=== PATIENT | male | born 1965 | race Two or more races ===

== ENCOUNTER 2023-12-23 20:00 | Inpatient (IN) | payer OTHER ==
[~2023-12-23] VITALS: Ht 180.3 cm; Wt 70.3 kg
[2023-12-23] MEDS ORDERED: SYNTHROID150 MCG PO (20:33)
[2023-12-23] MEDS ORDERED: METFORMIN HCL1000 MG (20:33)
[2023-12-23] MEDS ORDERED: COZAAR25 MG PO (20:33)
[2023-12-23] MEDS ORDERED: COZAAR100 MG (20:34)
[2023-12-23] MEDS ORDERED: CARAFATE1 GM (20:34)
[2023-12-23] MEDS ORDERED: CLONAZEPAM2 MG (20:34)
[2023-12-23] MEDS ORDERED: METOPROLOL SUCC25 MG PO (20:35)
[2023-12-23] MEDS ORDERED: TRAZODONE HCL100 MG PO (20:35)
[2023-12-23] MEDS ORDERED: TAMS0.4C (20:35)
[2023-12-23] MEDS ORDERED: PROSCAR5 MG (20:35)
[2023-12-23] MEDS ORDERED: OZEMPIC0.25 MG/02 (20:36)
[2023-12-23] MEDS ORDERED: ABANEU-SL TABL1 EACH (20:36)
[2023-12-23] MEDS ORDERED: TAMSULOSIN HCL 0.4 MG CAP PO ONE ×2 (21:00→21:08)
[2023-12-23] MEDS ORDERED: KETOROLAC TROMETHAMINE 60 MG VIAL IM ONE ×2 (21:00→21:09)
[2023-12-23] MEDS ORDERED: CEFTRIAXONE SODIUM 2,000 MG VIAL IV ONE (21:00)
[2023-12-23] MEDS ORDERED: 0.9 % SODIUM CHLORIDE 1,000 ML IV ONE (21:00)
[2023-12-23] MEDS ORDERED: CEFTRIAXONE SODIUM 2,000 MG VIAL ONE (21:09)
[2023-12-23 21:28] LABS: HEMATOCRIT 39.1 % (39.0-48.0); HEMOGLOBIN 13.2 g/dL (13-16.00); MEAN CELL VOLUME 91.5 fL (80.0-100.00); MEAN CORPUSCULAR HEMOGLOBIN 30.8 pg (27.00-32.0); MEAN CORPUSCULAR HGB CONC 33.7 g/dl (32.0-36.0); PLATELET COUNT 322 K/uL (150-450); RED BLOOD COUNT 4.27 M/uL (4.00-6.00); RED CELL DISTRIBUTION WIDTH 13.4 % (11.5-14.5)
[2023-12-23 21:32] LABS: PH,URINE 5.5 (5.0-8.0); URINE APPEARANCE Cloudy; URINE BILIRRUBIN Small (NEGATIVE); URINE BLOOD Large; URINE COLOR Orange; URINE GLUCOSE Negative (NEGATIVE); URINE KETONE Negative (NEGATIVE); URINE LEUKOCYTE Moderate; URINE NITRATE Positive
[2023-12-23 21:35] LABS: URINE BACTERIA 147.4 uL (0.0-1933); URINE EPITHELIAL CELLS 16.6 uL (0.0-38.8); URINE RBC 9074.5 uL (0.0-20.8); URINE WBC 287.4 uL (0.0-23.2)
[2023-12-23 22:00] LABS: ALBUMIN 3.4 gm/dL (3.4-5.0); BILIRUBIN TOTAL 0.31 mg/dL (0.3-1.2); CALCIUM 9.5 mg/dL (8.5-10.1); CREATININE SERUM 1.33 mg/dL (0.70-1.30); GFR 54.85; GLOBULINA 4.3 G/DL (2.4-3.5); POTASSIUM 4.79 mEq/L (3.5-5.1); TOTAL PROTEIN 7.7 gm/dL (6.4-8.2)
[2023-12-23 22:05] LABS: URINE PROTEIN 100 (NEGATIVE)
[2023-12-23 22:06] LABS: URINE MUCUS MODERATE
[2023-12-24] MEDS ORDERED: 0.9 % SODIUM CHLORIDE 1,000 ML IV SCH (00:30)
[2023-12-24] MEDS ORDERED: ACETAMINOPHEN 500 MG GEL..CAP PO PRN (00:30)
[2023-12-24 02:04] LABS: INR 0.98; PARTIAL THROMBOPLASTIN TIME 32.1 SECONDS (22.0-34.0); PROTHROMBIN TIME 10.7 SECONDS (9.0-11.5)
[2023-12-24] MEDS ORDERED: LEVOTHYROXINE SODIUM 150 MCG TABLET PO SCH (06:00)
[2023-12-24 07:24] VITALS: BP 100/67; O2SAT 95
[2023-12-24] MEDS ORDERED: FINASTERIDE 5 MG TABLET PO SCH (09:00)
[2023-12-24] MEDS ORDERED: FAMOTIDINE/PF 20 MG in 0.9 % SODIUM CHLORIDE 8 ML IV PUSH SCH (09:00)
[2023-12-24] MEDS ORDERED: METOPROLOL SUCCINATE 25 MG TAB.SR.24H PO SCH (09:00)
[2023-12-24] MEDS ORDERED: LOSARTAN POTASSIUM 100 MG TABLET PO SCH (09:00)
[2023-12-24] MEDS ORDERED: TAMSULOSIN HCL 0.4 MG CAP PO SCH (09:00)
[2023-12-24] MEDS ORDERED: CEFTRIAXONE SODIUM 2,000 MG in 0.9 % SODIUM CHLORIDE 100 ML IV SCH (09:00)
[2023-12-24 18:41] VITALS: BP 116/80
[2023-12-24] MEDS ORDERED: TRAZODONE HCL 50 MG TABLET PO SCH (21:00)
[2023-12-25 02:00] VITALS: BP 116/83
[2023-12-25 08:55] LABS: HEMATOCRIT 39.6 % (39.0-48.0); HEMOGLOBIN 13.6 g/dL (13-16.00); MEAN CELL VOLUME 89.9 fL (80.0-100.00); MEAN CORPUSCULAR HEMOGLOBIN 30.7 pg (27.00-32.0); MEAN CORPUSCULAR HGB CONC 34.2 g/dl (32.0-36.0); PLATELET COUNT 303 K/uL (150-450); RED BLOOD COUNT 4.41 M/uL (4.00-6.00); RED CELL DISTRIBUTION WIDTH 13.5 % (11.5-14.5)
[2023-12-25 09:20] VITALS: BP 119/83
[2023-12-25 10:07] LABS: ALBUMIN 3.4 gm/dL (3.4-5.0); BILIRUBIN TOTAL 0.56 mg/dL (0.3-1.2); CALCIUM 8.9 mg/dL (8.5-10.1); CREATININE SERUM 1.17 mg/dL (0.70-1.30); GFR 63.59; GLOBULINA 3.6 G/DL (2.4-3.5); POTASSIUM 4.66 mEq/L (3.5-5.1); PROSTATIC SPECIFIC ANTIGEN 1.84 NG/ML (0.010-4.00)
[2023-12-25 18:00] VITALS: BP 120/88
[2023-12-25] MEDS ORDERED: CLONAZEPAM 0.5 MG TABLET PO SCH (21:00)
[2023-12-26 01:35] VITALS: BP 124/76
[2023-12-26] MEDS ORDERED: FAMOtidine 20 MG TABLET PO SCH (09:00)
[2023-12-26 10:14] VITALS: BP 126/81
[2023-12-26 10:25] LABS: ALBUMIN 3.5 gm/dL (3.4-5.0); BILIRUBIN TOTAL 0.59 mg/dL (0.3-1.2); CALCIUM 9.2 mg/dL (8.5-10.1); CREATININE SERUM 1.26 mg/dL (0.70-1.30); GFR 58.38; POTASSIUM 4.5 mEq/L (3.5-5.1); TOTAL PROTEIN 7.5 gm/dL (6.4-8.2)
[2023-12-26 17:07] VITALS: BP 119/77
[2023-12-27 02:00] VITALS: BP 108/74
[2023-12-27 09:52] VITALS: BP 112/74
[2023-12-27] MEDS ORDERED: POLYETHYLENE GLYCOL 3350 17 GM BLIST.PACK PO SCH ×2 (09:55→16:00)
[2023-12-27 17:05] VITALS: BP 118/88
[2023-12-28 02:00] VITALS: BP 110/70
[2023-12-28 09:36] VITALS: BP 135/75
[2023-12-28] MEDS ORDERED: TAMS0.4C PO (10:21)
[2023-12-28] MEDS ORDERED: FAMOTIDINE20 MG PO (10:22)
[2023-12-28] MEDS ORDERED: TOPROL XL25 M1 PO (10:22)
[2023-12-28] MEDS ORDERED: TRAZODONE HCL50 MG PO (10:22)
[2023-12-28] MEDS ORDERED: LOSARTAN POTAS100 MG PO (10:22)
[2023-12-28] MEDS ORDERED: POLY119PG PO (10:23)
== END 2023-12-28 11:52 | disposition home or self-care (01) | DRG 690 ==
LOC: ER 20:01 → SEC-K 12-24 00:29 → MEDJ 12-24 08:51
PROVIDERS: General Practice; Internal Medicine; ADMIT Internal Medicine; ATTEND Internal Medicine
PROC: BW21YZZ Computerized Tomography (CT Scan) of Abdomen and Pelvis using Other Contrast (ICD-10-PCS; principal; 2023-12-23)
PROC: BW20ZZZ Computerized Tomography (CT Scan) of Abdomen (ICD-10-PCS; 2023-12-23)
DX: N39.0 Urinary tract infection, site not specified (principal); N17.9 Acute kidney failure, unspecified; N40.1 Benign prostatic hyperplasia with lower urinary tract symptoms; R39.11 Hesitancy of micturition; R33.8 Other retention of urine; R31.0 Gross hematuria; I12.9 Hypertensive chronic kidney disease with stage 1 through stage 4 chronic kidney disease, or unspecified chronic kidney disease; E11.22 Type 2 diabetes mellitus with diabetic chronic kidney disease; N18.9 Chronic kidney disease, unspecified; E03.9 Hypothyroidism, unspecified; Z79.84 Long term (current) use of oral hypoglycemic drugs